=== PATIENT | female | born 1940 | race Two or more races ===

== ENCOUNTER → 2024-10-03 09:37 | Outpatient (REF) | payer OTHER, SELFPAY | LOC: MRI 3T 09:37 | PROVIDERS: ATTENDING PHYSICIAN Student in an Organized Health Care Education/Training Program | DX: M54.9 Dorsalgia, unspecified (principal) | CPT/HCPCS: 72146 ==

== ENCOUNTER → 2024-10-22 14:33 | Outpatient (REF) | payer OTHER, SELFPAY | LOC: HWRAD 14:33 | PROVIDERS: ATTENDING PHYSICIAN Student in an Organized Health Care Education/Training Program | DX: M54.2 Cervicalgia (principal) | CPT/HCPCS: 72040 ==

== ENCOUNTER → 2024-10-31 12:46 | Outpatient (REF) | payer OTHER, SELFPAY | LOC: PAVMRI 12:46 | PROVIDERS: ATTENDING PHYSICIAN Student in an Organized Health Care Education/Training Program | DX: N39.0 Urinary tract infection, site not specified (principal); R93.89 Abnormal findings on diagnostic imaging of other specified body structures; G89.29 Other chronic pain; M54.6 Pain in thoracic spine | CPT/HCPCS: 72141; 72146 ==

== ENCOUNTER → 2024-11-18 12:31 | Outpatient (REF) | payer OTHER, SELFPAY | LOC: HWRAD 12:31 | PROVIDERS: ATTENDING PHYSICIAN Student in an Organized Health Care Education/Training Program | DX: M79.675 Pain in left toe(s) (principal) | CPT/HCPCS: 73630 ==